=== PATIENT | female | born 1955 | race Caucasian/White ===

== ENCOUNTER → 2024-05-22 15:01 | Outpatient (REF) | payer OTHER, SELFPAY | LOC: PAVMRI 15:01 | PROVIDERS: ATTENDING PHYSICIAN Podiatrist Foot & Ankle Surgery; FAMILY PHYSICIAN Internal Medicine | DX: M72.2 Plantar fascial fibromatosis (principal) | CPT/HCPCS: 73721 ==

== ENCOUNTER → 2024-08-08 15:13 | Outpatient (REF) | payer OTHER, SELFPAY | LOC: WDC 15:13 | PROVIDERS: ATTENDING PHYSICIAN Internal Medicine | DX: Z12.31 Encounter for screening mammogram for malignant neoplasm of breast (principal) | CPT/HCPCS: 77063; 77067 ==

== ENCOUNTER → 2025-08-14 12:56 | Outpatient (REF) | payer OTHER, SELFPAY | LOC: WDC 12:56 | PROVIDERS: ATTENDING PHYSICIAN Internal Medicine | DX: Z12.31 Encounter for screening mammogram for malignant neoplasm of breast (principal) | CPT/HCPCS: 77063; 77067 ==